=== PATIENT | female | born 1975 | race Caucasian/White ===

== ENCOUNTER 2020-04-30 06:35 | Outpatient (REF) | payer OTHER, SELFPAY ==
[2020-04-30 08:23] LABS: Anion Gap 11 (12-20); Blood Urea Nitrogen 16 mg/dL (9-16); Calcium 8.6 mg/dL (8.4-10.2); Carbon Dioxide 24 mmol/L (22-29); Chloride 107 mmol/L (96-108); Estimated Glomerular Filt Rate 58; Glucose Fasting 82 mg/dL (60-99); Potassium 4.3 mmol/l (3.3-5.1); Sodium 138 mmol/L (135-145)
[2020-04-30 08:46] LABS: TSH reflex Free T4 5.64 mIU/mL (0.32-4.0)
[2020-04-30 09:18] LABS: Free T4 (Free Thyroxine) 1.03 ng/dL (0.71-1.85)
== END 2020-04-30 06:36 | disposition home or self-care (01) ==
LOC: HO.LAB 06:35
PROVIDERS: Visit Provider Nurse Practitioner Family
DX: E03.9 Hypothyroidism, unspecified (principal); J45.909 Unspecified asthma, uncomplicated
CPT/HCPCS: 80048; 84439; 84443